=== PATIENT | female | born 1980 | race African-American/Black ===

== ENCOUNTER 2017-01-07 22:30 | Emergency (ER) | payer OTHER, MEDICAID ==
[~2017-01-07] VITALS: Ht 177.8 cm; Wt 118.5 kg
[2017-01-07 22:31] VITALS: BP 136/86; PULSE 70; RESP 16; TEMP 98.6; O2SAT 100
[2017-01-07] MEDS ORDERED: MELO7.5T4 PO (23:02)
[2017-01-07] MEDS ORDERED: OXYC1CAP PO (23:02)
[2017-01-07 23:03] VITALS: BP 132/74; PULSE 73; RESP 16; O2SAT 100
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
== END 2017-01-08 01:21 | disposition home or self-care (01) ==
LOC: EDBD 22:30 → NEPC 22:30
DX: S16.1XXA Strain of muscle, fascia and tendon at neck level, initial encounter (principal); S29.019A Strain of muscle and tendon of unspecified wall of thorax, initial encounter; S39.012A Strain of muscle, fascia and tendon of lower back, initial encounter; M54.6 Pain in thoracic spine; R51 Headache; M79.601 Pain in right arm; R42 Dizziness and giddiness; R07.89 Other chest pain; V43.52XA Car driver injured in collision with other type car in traffic accident, initial encounter; Y92.410 Unspecified street and highway as the place of occurrence of the external cause; Y99.8 Other external cause status
CPT/HCPCS: 71010; 72040; 72072; 72100; 73060; 99284